=== PATIENT | male | born 1980 | race African-American/Black ===

== ENCOUNTER 2018-03-21 23:39 | Emergency (ER) | payer OTHER ==
[~2018-03-21] VITALS: Ht 180.3 cm; Wt 72.7 kg
[2018-03-22] MEDS ORDERED: IBUPROFEN 800 MG TABLET PO ONE (01:00)
[2018-03-22] MEDS ORDERED: IBUPROFEN 100 MG/5 ML SUSPENSION UDCUP PO ONE (01:15)
[2018-03-22 02:05] VITALS: BP 124/81
== END 2018-03-22 02:22 | disposition home or self-care (01) ==
LOC: EMS 23:39
DX: G44.209 Tension-type headache, unspecified, not intractable (principal); F17.210 Nicotine dependence, cigarettes, uncomplicated; F12.90 Cannabis use, unspecified, uncomplicated

== ENCOUNTER 2018-03-31 19:00 | Emergency (ER) | payer OTHER ==
[~2018-03-31] VITALS: Ht 175.3 cm; Wt 72.7 kg
[2018-03-31 20:40] VITALS: BP 133/75
[2018-03-31] MEDS ORDERED: KETOROLAC TROMETHAMINE 30 MG/ML VIAL IM ONE (21:00)
== END 2018-03-31 21:27 | disposition home or self-care (01) ==
LOC: EMS 19:01
DX: G43.909 Migraine, unspecified, not intractable, without status migrainosus (principal); F17.210 Nicotine dependence, cigarettes, uncomplicated; F12.90 Cannabis use, unspecified, uncomplicated
CPT/HCPCS: 96372; 99283; J1885

== ENCOUNTER 2018-04-10 18:41 | Inpatient (IN) | payer MEDICAID, OTHER ==
[~2018-04-10] VITALS: Ht 177.8 cm; Wt 65.8 kg
[2018-04-10 19:44] LABS: GLUCOSE,POINT OF CARE 101 MG/DL (70-110)
[2018-04-10 19:57] LABS: BASOPHILS % (AUTO) 0.4 % (0.0-2.0); EOSINOPHILS % (AUTO) 2.5 % (1.0-6.0); HEMATOCRIT 38.9 % (41-53); HEMOGLOBIN 13.4 g/dL (13.5-17.5); LYMPHOCYTES % (AUTO) 40.7 % (22.0-44.0); MEAN CORPUSCULAR HEMOGLOBIN 31.4 pg (26.0-34.0); MEAN CORPUSCULAR HGB CONC 34.4 G/dL (31.0-37.0); MEAN CORPUSCULAR VOLUME 91 fL (80-100); MONOCYTES # (AUTO) 0.6 K/uL (0.1-1.0); MONOCYTES % (AUTO) 8.2 % (2.0-9.0); NEUTROPHILS # (AUTO) 3.5 K/uL (1.8-7.7); NEUTROPHILS % (AUTO) 48.2 % (40.0-70.0); PLATELET COUNT (AUTO) 234 K/uL (150-450); RED BLOOD CELL COUNT(AUTO) 4.27 MIL/uL (4.50-5.90); RED CELL DISTRIBUTION WIDTH 12.5 % (11.5-14.5)
[2018-04-10] MEDS ORDERED: ONDANSETRON HCL 4 MG/2 ML VIAL IVP ONE (20:00)
[2018-04-10] MEDS ORDERED: SODIUM CHLORIDE 0.9% 1,000 ML IV ONE (20:00)
[2018-04-10 20:10] LABS: ANION GAP 11 mmol/L (8-16); CALCIUM, TOTAL 9.1 mg/dL (8.8-10.5); CARBON DIOXIDE 25 mmol/L (22-29); CHLORIDE 104 mmol/L (98-107); CREATININE 1.14 mg/dL (0.60-1.30); GLOMERULAR FILTR. RATE CALC > 60 mL/min (>60); GLUCOSE,RANDOM 106 mg/dL (70-110); POTASSIUM 3.2 mmol/L (3.5-5.1); SODIUM SERUM 140 mmol/L (136-145); UREA NITROGEN, BLOOD 9 mg/dL (7-18)
[2018-04-10 20:24] LABS: ALANINE AMINOTRANSFERASE 31 U/L (12-78); ALBUMIN 4.1 g/dL (3.4-5.0); ALKALINE PHOSPHATASE 73 U/L (46-116); ASPARTATE AMINOTRANSFERASE 22 U/L (15-37); BILIRUBIN,TOTAL 0.4 mg/dL (0.1-1.0); TOTAL PROTEIN, SERUM 7.4 g/dL (6.4-8.2)
[2018-04-10 20:29] LABS: LACTIC ACID 4.4 mmol/L (0.4-2.0)
[2018-04-10] MEDS ORDERED: POTASSIUM CHLORIDE 10% 40 MEQ/30 ML LIQUID UDCUP PO ONE (22:15)
[2018-04-10] MEDS ORDERED: HALOPERIDOL 5 MG TABLET PO PRN (23:15)
[2018-04-10] MEDS ORDERED: ZOLPIDEM TARTRATE 10 MG TABLET PO PRN (23:15)
[2018-04-10] MEDS ORDERED: LORazepam 2 MG TABLET PO PRN (23:15)
[2018-04-11 00:54] VITALS: BP 123/74
[2018-04-11] MEDS ORDERED: BACITRACIN 28.4 GM OINTMENT TP PRN (06:15)
[2018-04-11] MEDS ORDERED: ONDANSETRON HCL 4 MG TABLET PO PRN (06:15)
[2018-04-11] MEDS ORDERED: LOPERAMIDE HCL 2 MG CAPSULE PO PRN (06:15)
[2018-04-11] MEDS ORDERED: PETROLATUM,WHITE 71 GM JELLY TP PRN (06:15)
[2018-04-11] MEDS ORDERED: CloNIDine HCL 0.1 MG TABLET PO PRN (06:15)
[2018-04-11] MEDS ORDERED: ALBUTEROL SULFATE HFA 90 MCG/PUFF 8 GM INHALER IH PRN (06:15)
[2018-04-11] MEDS ORDERED: MAGNESIUM HYDROXIDE SUSPENSION 30 ML UDCUP PO PRN (06:15)
[2018-04-11] MEDS ORDERED: MAG HYDROX/AL HYDROX/SIMETH ES 30 ML SUSPENSION UDCUP PO PRN (06:15)
[2018-04-11 08:18] VITALS: BP 104/66
[2018-04-11] MEDS: DOCUSATE SODIUM 100 MG CAPSULE PO SCH (09:15)
[2018-04-11] MEDS: OMEPRAZOLE 20 MG CAPSULE PO SCH (09:15)
[2018-04-11 09:19] LABS: CHOL/HDL RATIO 2.3 (4.2-7.3); FREE T4 (FREE THYROXINE) 0.75 ng/dL (0.76-1.46); POTASSIUM 3.8 mmol/L (3.5-5.1); THYROID STIMULATING HORMONE 0.75 uIU/mL (0.36-3.74)
[2018-04-11 12:28] VITALS: BP 120/76
[2018-04-11] MEDS: IBUPROFEN 600 MG TABLET PO PRN (12:31)
[2018-04-11 16:02] VITALS: BP 115/67
[2018-04-11] MEDS: ACETAMINOPHEN 325 MG TABLET PO PRN (16:39)
[2018-04-11] MEDS: OLANZapine 5 MG TABLET PO SCH (17:02)
[2018-04-11] MEDS ORDERED: MIRTAZAPINE 15 MG TABLET PO SCH (21:00)
[2018-04-12 06:13] VITALS: BP 124/65
[2018-04-12 08:22] VITALS: BP 107/61
[2018-04-12] MEDS: OMEPRAZOLE 20 MG CAPSULE PO SCH (08:59)
[2018-04-12] MEDS: OLANZapine 5 MG TABLET PO SCH ×2 (08:59→16:07)
[2018-04-12] MEDS: DOCUSATE SODIUM 100 MG CAPSULE PO SCH (08:59)
[2018-04-12 10:25] VITALS: BP 129/70
[2018-04-12] MEDS: IBUPROFEN 600 MG TABLET PO PRN (10:27)
[2018-04-12 13:48] VITALS: BP 119/65
[2018-04-12] MEDS: ACETAMINOPHEN 325 MG TABLET PO PRN ×2 (13:49→18:43)
[2018-04-12 16:00] VITALS: BP 116/61
[2018-04-12] MEDS: BENZOCAINE/MENTHOL LOZENGE MM PRN (18:42)
[2018-04-12] MEDS: MIRTAZAPINE 15 MG TABLET PO SCH (20:32)
[2018-04-13 04:19] VITALS: BP 112/64
[2018-04-13 08:11] VITALS: BP 119/73
[2018-04-13] MEDS: OLANZapine 5 MG TABLET PO SCH ×2 (09:18→17:08)
[2018-04-13] MEDS: DOCUSATE SODIUM 100 MG CAPSULE PO SCH (09:18)
[2018-04-13] MEDS: OMEPRAZOLE 20 MG CAPSULE PO SCH (09:18)
[2018-04-13 12:17] VITALS: BP 112/69
[2018-04-13] MEDS: ACETAMINOPHEN 325 MG TABLET PO PRN (12:19)
[2018-04-13 16:31] VITALS: BP 110/60
[2018-04-13] MEDS: MIRTAZAPINE 15 MG TABLET PO SCH (21:10)
[2018-04-14 05:29] VITALS: BP 120/82
[2018-04-14 08:10] VITALS: BP 123/71
[2018-04-14] MEDS: ACETAMINOPHEN 325 MG TABLET PO PRN (08:31)
[2018-04-14] MEDS: DOCUSATE SODIUM 100 MG CAPSULE PO SCH (08:31)
[2018-04-14] MEDS: OMEPRAZOLE 20 MG CAPSULE PO SCH (08:31)
[2018-04-14] MEDS: OLANZapine 5 MG TABLET PO SCH (08:31)
[2018-04-14 16:08] VITALS: BP 107/61
[2018-04-14] MEDS: OLANZapine 10 MG TABLET PO SCH (16:41)
[2018-04-14] MEDS: MIRTAZAPINE 15 MG TABLET PO SCH (20:45)
[2018-04-14] MEDS: BENZOCAINE/MENTHOL LOZENGE MM PRN (20:46)
[2018-04-14] MEDS ORDERED: OLAN10TA3 PO (22:49)
[2018-04-14] MEDS ORDERED: DSS100 PO (22:50)
[2018-04-14] MEDS ORDERED: MIRT30 PO (22:50)
[2018-04-14] MEDS ORDERED: OMEP20 PO (22:50)
[2018-04-15 06:50] VITALS: BP 120/77
[2018-04-15] MEDS: OMEPRAZOLE 20 MG CAPSULE PO SCH (08:17)
[2018-04-15] MEDS: OLANZapine 10 MG TABLET PO SCH (08:17)
[2018-04-15] MEDS: DOCUSATE SODIUM 100 MG CAPSULE PO SCH (08:19)
[2018-04-15 08:32] VITALS: BP 132/80
[2018-04-15 09:42] VITALS: BP 125/77
[2018-04-15] MEDS: ACETAMINOPHEN 325 MG TABLET PO PRN (09:42)
== END 2018-04-15 13:09 | disposition home or self-care (01) | DRG 751 ==
LOC: EMS 18:42 → B2S 21:30 → UNDOADMIN 21:30 → B2S 04-13 19:26
PROVIDERS: ADMIT Psychiatry & Neurology Psychiatry; ATTEND Psychiatry & Neurology Psychiatry
DX: F33.2 Major depressive disorder, recurrent severe without psychotic features (principal); R45.851 Suicidal ideations; F44.5 Conversion disorder with seizures or convulsions; R44.0 Auditory hallucinations; E86.0 Dehydration; Z28.21 Immunization not carried out because of patient refusal; E87.6 Hypokalemia; F12.90 Cannabis use, unspecified, uncomplicated; F17.200 Nicotine dependence, unspecified, uncomplicated; F41.9 Anxiety disorder, unspecified; G43.909 Migraine, unspecified, not intractable, without status migrainosus; G47.00 Insomnia, unspecified; K59.00 Constipation, unspecified; Z59.0 Homelessness; Z71.6 Tobacco abuse counseling; Z71.51 Drug abuse counseling and surveillance of drug abuser
CPT/HCPCS: 70450; 83605; 84132; 84439; 84443; 96361; 96374; G0480; J2405; J7030

== ENCOUNTER 2018-04-16 06:56 | Emergency (ER) | payer MEDICAID ==
[~2018-04-16] VITALS: Ht 172.7 cm; Wt 70.5 kg
[~2018-04-16 06:56] MED LIST: MIRT30 PO; OLAN10TA3 PO
[2018-04-16] MEDS ORDERED: DEXTRAN 70 0.1%/HYPROMELL 0.3% 0.9 ML OPHTHALMIC SOLUTION [PF] OU ONE (08:30)
[2018-04-16 09:33] VITALS: BP 123/79
== END 2018-04-16 09:35 | disposition home or self-care (01) ==
LOC: EMS 06:56
DX: H53.8 Other visual disturbances (principal); F32.9 Major depressive disorder, single episode, unspecified; F12.90 Cannabis use, unspecified, uncomplicated; F17.210 Nicotine dependence, cigarettes, uncomplicated